=== PATIENT | male | born 1990 | race Hispanic/Latino ===

== ENCOUNTER 2017-08-24 17:05 | Emergency (ER) | payer BC ==
[2017-08-24 17:34] VITALS: RESP 18; TEMP 98.2
[2017-08-24 17:36] VITALS: BMI 31.9
--- NOTE | 2017-08-24 17:49 | ED PDOC ---
Arrival/HPI - General Historian: Patient - History of Present Illness Time/Duration: < week Severity Level: 2 Context: Tripped <Guero Hill - Last Filed: 08/24/17 21:15> - History of Present Illness Severity Level: Mild Activities at Onset: Rest <Aki Kidd - Last Filed: 08/24/17 21:43> - General Chief Complaint: Trauma Time Seen by Provider: 08/24/17 17:11 - History of Present Illness Narrative History of Present Illness (Text): 27 year old male presents with a right flank contusion. Patient states he was at a bbq on Sunday when he tripped and ell on his right side on a plant pot. He has noticed over the past 2 days that the bruising has increased. He denies any pain and denied hitting his head. Patient denies any blood in the urine or any other urinary symptoms. Patients denies chest pain, SOB, abdominal pain or any other complaints at this time. 08/24/17 17:47 (Guero Hill) Past Medical History - Provider Review Nursing Documentation Reviewed: Yes - Infectious Disease Hx of Infectious Diseases: None - Tetanus Immunization Tetanus Immunization: Unknown - Past Medical History Past Medical History: No Previous - Psychiatric Hx Substance Use: No - Past Surgical History Past Surgical History: No Previous <Guero Hill - Last Filed: 08/24/17 21:15> - Travel History Have you recently traveled outside [place] w/in the past 3 mons?: No - Past History Past History: No Previous <Aki Kidd - Last Filed: 08/24/17 21:43> Family/Social History - Physician Review Nursing Documentation Reviewed: Yes Family/Social History: No Known Family HX Hx Alcohol Use: No Hx Substance Use: No Hx Substance Use Treatment: No <Guero Hill - Last Filed: 08/24/17 21:15> Allergies/Home Meds <Guero Hill - Last Filed: 08/24/17 21:15> <Aki Kidd - Last Filed: 08/24/17 21:43> Allergies/Adverse Reactions: Allergies No Known Allergies Allergy (Verified 12/23/12 12:48) Review of Systems - Review of Systems Constitutional: Normal Eyes: Normal ENT: Normal Respiratory: Normal Cardiovascular: Normal Gastrointestinal: Normal. absent: Abdominal Pain, Stool Changes, Nausea, Vomiting Genitourinary Male: Normal. absent: Dysuria, Frequency, Hematuria, Urinary Output Changes Musculoskeletal: Normal. absent: Arthralgias, Back Pain Skin: Other (bruising on right flank) Neurological: Normal. absent: Headache, Dizziness, Focal Weakness, Gait Changes Endocrine: Normal Hemo/Lymphatic: Normal Psychiatric: Normal <Guero Hill Filed: 08/24/17 21:15> Physical Exam Vital Signs Reviewed: Yes Temperature: Afebrile Blood Pressure: Normal Pulse: Regular Respiratory Rate: Normal Appearance: Positive for: Well-Appearing, Non-Toxic, Comfortable Pain Distress: None Mental Status: Positive for: Alert and Oriented X 3 - Systems Exam Head: Present: Atraumatic, Normocephalic Pupils: Present: PERRL Extroacular Muscles: Present: EOMI Conjunctiva: Present: Normal Mouth: Present: Moist Mucous Membranes Neck: Present: Normal Range of Motion Respiratory/Chest: Present: Clear to Auscultation, Good Air Exchange. No: Respiratory Distress, Accessory Muscle Use Cardiovascular: Present: Regular Rate and Rhythm, Normal S1, S2. No: Murmurs Abdomen: Present: Normal Bowel Sounds. No: Tenderness, Distention, Rebound, Guarding Back: Present: Other (right flank bruising). No: CVA Tenderness, Midline Tenderness, Paraspinal Tenderness Upper Extremity: No: Edema Lower Extremity: No: Edema Neurological: Present: GCS=15, CN II-XII Intact Skin: Present: Warm, Other (bruising on right flank ) Psychiatric: Present: Alert, Oriented x 3 <SergioGuero Last Filed: 08/24/17 21:15> - Systems Exam Back: Present: Normal Inspection Upper Extremity: Present: Normal Inspection, Normal ROM, NORMAL PULSES, Neurovascularly Intact Lower Extremity: Present: Normal Inspection, NORMAL PULSES, Normal ROM, Neurovascularly Intact <Aki Kidd Filed: 08/24/17 21:43> Vital Signs Temp Pulse Resp BP Pulse Ox 08/24/17 17:33 98.2 F 80 18 127/70 99 Medical Decision Making - Lab Interpretations I have reviewed the lab results: Yes <Guero Hill Filed: 08/24/17 21:15> Re-evaluation Time: 20:30 Reassessment Condition: Unchanged - Lab Interpretations Interpretation: Abnormal lab values (slight anemia) - RAD Interpretation Food Processing Scientist: Radiologist <Aki Kidd - Last Filed: 08/24/17 21:43> ED Course and Treatment: Plan -CBC, CMP,UA -reasses 08/24/17 17:54 -CBC shows Hgb of 13, UA shows trace ketones -CT abdomen and Pelvis with IV contrast ordered and pending 08/24/17 18:46 CT Abdomen Pelvis: 3.0 x 2.5 cm peripherally enhancing/hyperdense lesion in the spleen nonspecific , but could reflect a hemangioma, or less likely contained subcapsular hematoma or metastasis. Consider MRI as clinically indicated for further evaluation. Findings discussed with patient, patient will be given copy of CT report, and told to follow up with PMD and GI doctor. Patient also told to avoid physical contact sports until he is evaluated by PMD. 08/24/17 21:15 (Guero Hill) 08/24/17 In agreement with resident note, which includes further HPI details. Patient was seen and evaluated with resident, came up with plan and treatment together. I performed the hx and physical exam of the patient and discussed their mgt with the RESIDENT. I reviewed the RESIDENT's NOTE and agree with the assessment and plan of care. exam: abd - +BS, soft/nd/nt, no ochoa's sign, no mcburney's point tenderness, no masses/rebound/guarding/rigidity; no gross deformities noted, no bhagat-fernandes sign; + right flank large ecchymosis is noted, NON-indurated, non-tender, NO CVAT b/l, no gross deformities, no overlaying skin ulcerations/lacerations/ wounds noted Back - no midline tenderness, no cvat b/l, no step off pt remained comfortable pt is not in any distress pt is made aware of his medical results pt is encouraged no contact sports pt is encouraged outpt f/u pt will be discharged home (Aki Kidd) - Lab Interpretations Lab Results: 08/24/17 18:33 08/24/17 18:33 Lab Results 08/24/17 18:33: Sodium 142, Potassium 4.0, Chloride 104, Carbon Dioxide 25, Anion Gap 16, BUN 17, Creatinine 0.9, Est GFR ( Amer) > 60, Est GFR (Non- Af Amer) > 60, Random Glucose 97, Calcium 9.4, Total Bilirubin 0.6, AST 28, ALT 41, Alkaline Phosphatase 68, Total Protein 6.8, Albumin 4.3, Globulin 2.5, Albumin/Globulin Ratio 1.7 08/24/17 18:33: WBC 5.2, RBC 4.25, Hgb 13.0 L, Hct 36.8 L, MCV 86.6, MCH 30.6, MCHC 35.3, RDW 12.4, Plt Count 207, MPV 9.1, Gran % 59.0, Lymph % (Auto) 31.5, [place] % (Auto) 6.4 H, Eos % (Auto) 2.7, Baso % (Auto) 0.4, Gran # 3.04, Lymph # ( Auto) 1.6, [place] # (Auto) 0.3, Eos # (Auto) 0.1, Baso # (Auto) 0.02 08/24/17 18:15: Urine Color Yellow, Urine Appearance Clear, Urine pH 6.5, Ur Specific [place] 1.025, Urine Protein Negative, Urine Glucose (UA) Negative, Urine Ketones Trace H, Urine Blood Negative, Urine Nitrate Negative, Urine Bilirubin Negative, Urine Urobilinogen 0.2, Ur Leukocyte Esterase Negative - RAD Interpretation Narrative RAD Interpretations (Text): 08/24/17 21:39 CT abd/pelvis IMPRESSION: 3.0 x 2.5 cm peripherally enhancing/hyperdense lesion in the spleen nonspecific , but could reflect a hemangioma, or less likely contained subcapsular hematoma or metastasis. Consider MRI as clinically indicated for further evaluation. Thank you for allowing us to participate in the care of your patient. Dictated and Authenticated by: Clinton Quiroz MD (Aki Kidd) Radiology Orders: 08/24/17 18:41 ABD & PELVIS IV CONTRAST ONLY [CT] Stat <Guero Hill - Last Filed: 08/24/17 21:15> - PA / LITHOPRESS OPERATOR / Resident Statement / has reviewed & agrees with the documentation as recorded. / has examined the patient and agrees with the treatment plan. - Scribe Statement The provider has reviewed the documentation as recorded by the Scribe <Aki Kidd - Last Filed: 08/24/17 21:43> - Scribe Statement Honey Lopez Provider Scribe Attestation: All medical record entries made by the Scribe were at my direction and personally dictated by me. I have reviewed the chart and agree that the record accurately reflects my personal performance of the history, physical exam, medical decision making, and the department course for this patient. I have also personally directed, reviewed, and agree with the discharge instructions and disposition. (Aki Kidd) Disposition/Present on Arrival - Present on Arrival Any Indicators Present on Arrival: No History of DVT/PE: No History of Uncontrolled Diabetes: No Urinary Catheter: No History Surgical Site Infection Following: None - Disposition Have Diagnosis and Disposition been Completed?: Yes Disposition Time: 21:17 <Guero Hill - Last Filed: 08/24/17 21:15> - Present on Arrival History of Decub. Ulcer: No - Disposition Patient Plan: Discharge <Aki Kidd - Last Filed: 08/24/17 21:43> - Disposition Diagnosis: Contusion, flank Disposition: HOME/ ROUTINE Patient Problems: Current Active Problems Problem Status Onset Contusion, flank Acute Condition: GOOD Discharge Instructions (ExitCare): Contusion (DC) Print Language: INDONESIAN Additional Instructions: Please follow up incidental findings in spleen with PMD and GI doctor. Please avoid contact sports until evaluated and cleared by GI and PMD. Please return if urine in blood or there is severe pain in the flank. Referrals: [facility] [Outside] - Follow up with primary [facility] [Outside] - Follow up with primary [facility] [place] [Outside] - Follow up with primary Forms: [facility] ([place])
[2017-08-24 18:29] LABS: PH,URINE 6.5 (4.7-8.0); URINE BILIRUBIN NEGATIVE (NEGATIVE); URINE BLOOD NEGATIVE (NEGATIVE); URINE GLUCOSE (UA) NEGATIVE (NEGATIVE); URINE LEUKOCYTE ESTERASE NEGATIVE Leu/uL (NEGATIVE); URINE PROTEIN NEGATIVE mg/dL (<30 mg/dL); URINE UROBILINOGEN 0.2 E.U./dL (<1 E.U./dL)
[2017-08-24 18:35] LABS: URINE APPEARANCE CLEAR (CLEAR); URINE COLOR YELLOW (YELLOW)
[2017-08-24 18:37] LABS: BASO # 0.02 K/mm3 (0.0-2.0); BASO % 0.4 % (0.0-3.0); EOS # 0.1 (0.0-0.7); EOS % 2.7 % (1.5-5.0); GRAN # 3.04 (1.4-6.5); LYMPH # 1.6 (1.2-3.4); LYMPH % 31.5 % (22.0-35.0); MEAN CELL VOLUME 86.6 fl (80.0-105.0); MEAN CORPUSCULAR HEMOGLOBIN 30.6 pg (25.0-35.0); MEAN CORPUSCULAR HGB CONC 35.3 g/dl (31.0-37.0); MEAN PLATELET VOLUME 9.1 fl (7.0-11.0); MONO # 0.3 (0.1-0.6); MONO % 6.4 % (1.0-6.0); RBC 4.25 10^6/uL (3.5-6.1); RED CELL DISTRIBUTION WIDTH 12.4 % (11.5-14.5); WHITE BLOOD COUNT 5.2 10^3/ul (4.5-11.0)
[2017-08-24 18:49] LABS: ALB/GLOB RATIO 1.7 (1.1-1.8); ALBUMIN 4.3 g/dL (3.0-4.8); ALT/SGPT 41 U/L (7-56); AST/SGOT 28 U/L (17-59); BLOOD UREA NITROGEN 17 mg/dL (7-21); CALCIUM 9.4 mg/dL (8.4-10.5); GFR AFRICAN-AMERICAN > 60; GFR NON-AFRICAN AMERICAN > 60
[2017-08-24 21:48] VITALS: BP 133/66; PULSE 77
[2017-08-24 21:50] VITALS: O2SAT 99
--- NOTE | 2017-08-25 11:31 | CT ---
PROCEDURE: CT Abdomen and Pelvis with contrast HISTORY: right flank large hematoma x 2 days, fell COMPARISON: None. TECHNIQUE: Contrast dose: 150 cc Omnipaque 300 Radiation dose: Total exam DLP = 871.30 mGy-cm. This CT exam was performed using one or more of the following dose reduction techniques: Automated exposure control, adjustment of the mA and/or kV according to patient size, and/or use of iterative reconstruction technique. FINDINGS: LOWER THORAX: Unremarkable. LIVER: Unremarkable. No gross lesion or ductal dilatation. GALLBLADDER AND BILE DUCTS: Unremarkable. PANCREAS: Unremarkable. No gross lesion or ductal dilatation. SPLEEN: Unremarkable.3.5 cm contrast-enhancing mass likely splenic hemangioma. She open ADRENALS: Unremarkable. No mass. KIDNEYS AND URETERS: Unremarkable. No hydronephrosis. No solid mass. VASCULATURE: Unremarkable. No aortic aneurysm. BOWEL: Unremarkable. No obstruction. No gross mural thickening. APPENDIX: Normal appendix. PERITONEUM: Unremarkable. No free fluid. No free air. LYMPH NODES: Unremarkable. No enlarged lymph nodes. BLADDER: Unremarkable. REPRODUCTIVE: Unremarkable. BONES: No acute fracture. OTHER FINDINGS: Infiltrative changes in the right flank likely the sequela of known trauma IMPRESSION: Soft tissue injury right flank consistent with clinical history. 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 Concordant results (preliminary interpretation) provided by [facility] [employer] [facility]. Procedure Completed: 19:51 Preliminary ([facility]) Report: Dictated and Authenticated: 21:10 Final Interpretation: 11:29
== END 2017-08-24 21:48 | disposition home or self-care (01) ==
LOC: ED 17:05
DX: S30.1XXA Contusion of abdominal wall, initial encounter (principal); W01.198A Fall on same level from slipping, tripping and stumbling with subsequent striking against other object, initial encounter; Y92.89 Other specified places as the place of occurrence of the external cause
CPT/HCPCS: 74177; 80053; 81003; 85025; 99285; Q9967